=== PATIENT | male | born 1980 | race Caucasian/White ===

== ENCOUNTER 2018-10-18 16:47 | Emergency (ER) | payer MEDICAID ==
[~2018-10-18] VITALS: Ht 182.9 cm; Wt 72.0 kg
[~2018-10-18 16:47] MED LIST: DIPH25CA83 PO; NO HOME MEDS
[2018-10-18 17:12] VITALS: BP 141/94
[2018-10-18] MEDS ORDERED: NAPR-56 PO (19:05)
[2018-10-18] MEDS ORDERED: PENI250T2 PO (19:05)
== END 2018-10-18 19:23 | disposition home or self-care (01) ==
LOC: ER 16:47
DX: K04.7 Periapical abscess without sinus (principal); Z79.899 Other long term (current) drug therapy
CPT/HCPCS: 99283